=== PATIENT | male | born 1970 | race African-American/Black ===

== ENCOUNTER 2016-08-05 20:14 | Emergency (ER) | payer BC ==
[2016-08-05] MEDS ORDERED: KETOROLAC TROMETHAMINE 60 MG/2 ML SDV IM ONE (20:54)
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
[2016-08-05 21:14] LABS: APPEARANCE,URINE CLEAR; BILIRUBIN,URINE NEGATIVE (NEGATIVE); GLUCOSE, URINE NEGATIVE (NEGATIVE); KETONES,URINE NEGATIVE (NEGATIVE); LEUKOCYTE ESTERASE,URINE NEGATIVE (NEGATIVE); NITRITE,URINE NEGATIVE (NEGATIVE); PROTEIN,URINE NEGATIVE (NEGATIVE); URINE SPECIFIC GRAVITY 1.026; UROBILINOGEN,URINE NEGATIVE mg/dL (<2.0)
[2016-08-05] MEDS ORDERED: HYDROCODONE/ACETAMINOPHEN 5-325 MG 6 TAB/DSPK PO PRN (21:40)
[2016-08-05 21:56] VITALS: BP 116/58
== END 2016-08-05 21:51 | disposition home or self-care (01) ==
LOC: ER 20:14
DX: M54.42 Lumbago with sciatica, left side (principal); R10.9 Unspecified abdominal pain
CPT/HCPCS: 99284; 96372; 87086; 81001; J1885

== ENCOUNTER → 2016-09-09 | Outpatient (CLI) | payer BC | LOC: OD 13:48 | DX: M54.16 Radiculopathy, lumbar region (principal); I51.7 Cardiomegaly | CPT/HCPCS: 71020; 72110; 72220 ==

== ENCOUNTER 2017-08-22 20:48 | Emergency (ER) | payer BC ==
--- NOTE | 2017-08-22 22:14 | ER Document Report ---
ED General - General Chief Complaint: Hand Swelling Stated Complaint: HAND PAIN Time Seen by Provider: 08/22/17 21:58 Notes: Patient is a pleasant 47-year-old male without a history of any medical problems and does not take medications presents with approximately 3 months of swelling in both hands. He says pain and swelling seems to get worse when exposed to the cold air. He says he has burning to the tips of his fingers. He denies this ever happening prior to 3 months ago. He denies any swelling or pain anywhere. He says his feet have been fine. Denies any injuries or trauma to his hands or feet. Denies any recent fevers or infections. He has no other complaints at this time. TRAVEL OUTSIDE OF THE [place] IN LAST 30 DAYS: No - Related Data Allergies/Adverse Reactions: No Known Allergies Allergy (Verified 08/05/16 20:53) Past Medical History - Social History Smoking Status: Unknown if Ever Smoked Frequency of alcohol use: None Drug Abuse: None Family History: None Renal/ Medical History: Denies: Hx Peritoneal Dialysis Review of Systems - Review of Systems Notes: My Normal Review Basic REVIEW OF SYSTEMS: CONSTITUTIONAL : Denies fever, chills, or sweats. Denies recent illness. RESPIRATORY: Denies cough, cold, or chest congestion. Denies shortness of breath, difficulty breathing, or wheezing. GASTROINTESTINAL: Denies abdominal pain. Denies nausea, vomiting, or diarrhea. Denies constipation. Last BM: MUSCULOSKELETAL: bilateral hand swelling and pain SKIN: Denies rash or skin lesions. NEUROLOGICAL: Denies altered mental status or loss of consciousness. Denies headache. Denies weakness or paralysis or loss of use of either side. Denies problems with gait or speech. Denies sensory or motor loss. ALL OTHER SYSTEMS REVIEWED AND NEGATIVE. Physical Exam - Vital signs Vitals: Temp Pulse Resp BP Pulse Ox 98.1 F 80 16 103/62 98 08/22/17 21:05 08/22/17 21:05 08/22/17 21:05 08/22/17 21:05 08/22/17 21:05 - Notes Notes: General Appearance: Well nourished, alert, cooperative, no acute distress, mild obvious discomfort. Vitals: reviewed, See vital signs table. Eyes: PERRL, EOMI, Conjuctiva clear Mouth: No decreasd moisture Lungs: No wheezing, No rales, No rhonci, No accessory muscle use, good air exchange bilaterally. Heart: Normal rate, Regular rythm, No murmur, no rub Abdomen: Normal BS, soft, No rigidity, No abdominal tenderness, No guarding, no rebound, no abdominal masses, no organomegaly Extremities: pateint has nonpiting swelling to both hands. There is no swelling proximal to the hands. Swelling is equal bilaterally. Normal capillary refill in all fingers. normal color. Skin: warm, dry, appropriate color, no rash Neuro: speech clear, oriented x 3, normal affect, responds appropriately to questions. Course - Re-evaluation Re-evalutation: 08/24/17 05:37 I do not know of the patient's hand swelling. On exam he has good capillary refill and evidence of good blood flow. There is not any sign of infection on exam. His swelling is equal bilaterally. It has been ongoing now for several months. I did obtain a CMP P to rule out renal and liver issues. I do not see any evidence of renal or liver complications on his blood work. His CRP is a little bit elevated. I informed the patient that I do not know the exact cause of symptoms however there are some autoimmune disorders that can cause bilateral hand swelling. I informed him that he needs a follow-up closely with primary care doctor for continued workup. In meantime will place him on tapering dose steroids to see if this helps improve his symptoms. I informed him to return to ER immediately if he has increasing swelling, fevers, or if he feels that his symptoms are worsening. Patient agrees with plan will be discharged home. Dictation of this chart was performed using voice recognition software; therefore, there may be some unintended grammatical errors. - Vital Signs Vital signs: Temp Pulse Resp BP Pulse Ox 98 F 74 18 110/60 98 08/23/17 01:00 08/23/17 01:00 08/23/17 01:00 08/23/17 01:00 08/23/17 01:00 - Laboratory Result Diagrams: 08/22/17 23:04 Laboratory results interpreted by me: 08/22/17 23:04 C-Reactive Protein 13.0 H Discharge - Discharge Clinical Impression: Bilateral hand swelling Condition: Good Disposition: HOME, SELF-CARE Instructions: Family Physicians / Practices Additional Instructions: Please take the Prednisone as prescribed. Please call a primary care physician to make a follow up appointment with next week. You will likely need further workup to determine the exact etiology of your hand swelling. please return to the ER if you have worsening swelling, fevers, discoloration of your hands, or if you have further concerns. Prescriptions: Prednisone 10 mg PO ASDIR #42 tablet Forms: Return to Work
[2017-08-22 23:34] LABS: ALANINE AMINOTRANSFERASE 34 U/L (21-72); ALKALINE PHOSPHATASE 51 U/L (38-126); ANION GAP 8 (5-19); ASPARTATE AMINO TRANSFERASE 30 U/L (17-59); BILIRUBIN,DIRECT 0.2 mg/dL (0.0-0.4); BILIRUBIN,TOTAL 0.6 mg/dL (0.2-1.3); BLOOD UREA NITROGEN 13 mg/dL (7-20); CARBON DIOXIDE 28 mmol/L (22-30); CHLORIDE 102 mmol/L (98-107); GLUCOSE 96 mg/dL (75-110); POTASSIUM 4.5 mmol/L (3.6-5.0)
[2017-08-23] MEDS ORDERED: PREDNISONE 20 MG TABLET PO ONE (00:25)
[2017-08-23 01:01] VITALS: BP 110/60
== END 2017-08-23 01:01 | disposition home or self-care (01) ==
LOC: ER 20:48
DX: M79.89 Other specified soft tissue disorders (principal); M79.641 Pain in right hand; M79.642 Pain in left hand
CPT/HCPCS: 99283; 36415; 82962; 86140; 80053; J7512

== ENCOUNTER 2018-02-05 20:00 | Emergency (ER) | payer BC ==
[2018-02-05 20:15] VITALS: BP 118/69
--- NOTE | 2018-02-05 20:47 | ER Document Report ---
ED Medical Screen (RME) - General Chief Complaint: Abdominal Pain Stated Complaint: ABDOMINAL PAIN Time Seen by Provider: 02/05/18 20:45 Mode of Arrival: Ambulatory Information source: Patient Notes: Patient is a 48-year-old male who presents with chief complaint of rash to his lower abdomen, groin and buttocks. Patient reports he is seen by [facility] was diagnosed with lupus. Patient reports he is already on prednisone. Patient denies any abdominal pain, nausea, vomiting, diarrhea or fever. Exam: Patient calm cooperative. Rash noted to patient's groin area. I have greeted and performed a rapid initial assessment of this patient. A comprehensive ED assessment and evaluation of the patient, analysis of test results and completion of the medical decision making process will be conducted by additional ED providers. Dictation of this chart was performed using voice recognition software; therefore, there may be some unintended grammatical errors. TRAVEL OUTSIDE OF THE [place] IN LAST 30 DAYS: No - Related Data Allergies/Adverse Reactions: No Known Allergies Allergy (Verified 08/05/16 20:53) Past Medical History Renal/ Medical History: Denies: Hx Peritoneal Dialysis Physical Exam - Vital signs Vitals: Temp Pulse Resp BP Pulse Ox 98.5 F 77 16 118/69 98 02/05/18 20:12 02/05/18 20:12 02/05/18 20:12 02/05/18 20:12 02/05/18 20:12 Course - Vital Signs Vital signs: Temp Pulse Resp BP Pulse Ox 98.5 F 77 16 118/69 98 02/05/18 20:12 02/05/18 20:12 02/05/18 20:12 02/05/18 20:12 02/05/18 20:12
--- NOTE | 2018-02-05 21:37 | ER Document Report ---
HPI - HPI Patient complains to provider of: Chronic rash Onset: Other - 8 months Pain Level: 4 Context: 48-year-old male complaining of a chronic groin rash for 8 months. [facility] has told him that he might have lupus. Presently he is on oral prednisone for the rash that was given a week and half ago. It is not helping. He came tonight because it itches and benoit and he feels like it is a little swollen. He has never seen a compensation advisor. No fever or chills. Patient denies abdominal pain. Associated Symptoms: None Exacerbated by: Other - Working Relieved by: Denies Similar symptoms previously: Yes Recently seen / treated by doctor: Yes - ROS ROS below otherwise negative: Yes Systems Reviewed and Negative: Yes All other systems reviewed and negative - REPRODUCTIVE Reproductive: DENIES: : Past Medical History - General Information source: Patient - Social History Smoking Status: Unknown if Ever Smoked Lives with: Family Family History: None - Medical History Medical History: Negative Renal/ Medical History: Denies: Hx Peritoneal Dialysis Surgical Hx: Negative Vertical Provider Document - CONSTITUTIONAL Agree With Documented VS: Yes Exam Limitations: No Limitations - INFECTION CONTROL TRAVEL OUTSIDE OF THE [place] IN LAST 30 DAYS: No - GI/ABDOMEN Gastrointestinal: Abdomen Soft, Abdomen Non-Tender - NEURO Level of Consciousness: Awake - DERM Integumentary: Rash - Suspicious for tinea cruris, dry scalng hypopigmented rash in the lower abdomen inner thighs and minimally between the buttocks Course - Vital Signs Vital signs: Temp Pulse Resp BP Pulse Ox 98.5 F 77 16 118/69 98 02/05/18 20:12 02/05/18 20:12 02/05/18 20:12 02/05/18 20:12 02/05/18 20:12 Discharge - Discharge Clinical Impression: chronic groin rash Condition: Good Disposition: HOME, SELF-CARE Instructions: Ringworm (Tinea Corporis) ([facility]), Topical Antifungal ([facility]) Additional Instructions: Follow-up with [facility] for this rash Try [id number] topical antifungal that she can get [id number] Referral to compensation advisor for skin scraping to see if this is fungus Forms: Return to Work Referrals: NASIR ROGERS, [ACTIVE STAFF] - Follow up tomorrow (call for dermatology appt)
== END 2018-02-05 22:32 | disposition home or self-care (01) ==
LOC: ER 20:00
DX: R21 Rash and other nonspecific skin eruption (principal); L29.8 Other pruritus
CPT/HCPCS: 99283